=== PATIENT | female | born 1985 | race Caucasian/White ===

== ENCOUNTER 2017-10-05 16:00 | Outpatient (RCR) | payer OTHER | END 2017-10-06 | LOC: PT 16:00 | PROVIDERS: ATTEND Neurological Surgery | DX: M51.17 Intervertebral disc disorders with radiculopathy, lumbosacral region (principal) ==

== ENCOUNTER 2017-10-07 15:57 | Outpatient (RCR) | payer OTHER | END 2017-11-06 | LOC: PT 15:57 | PROVIDERS: ATTEND Neurological Surgery | DX: M51.17 Intervertebral disc disorders with radiculopathy, lumbosacral region (principal); M62.81 Muscle weakness (generalized) | CPT/HCPCS: 97139 ==